=== PATIENT | female | born 1970 | race Hispanic/Latino ===

== ENCOUNTER 2021-12-01 04:20 | Emergency (ER) | payer BC ==
[~2021-12-01] VITALS: Ht 144.8 cm; Wt 82.1 kg
[2021-12-01] MEDS ORDERED: MORPHINE 4 MG SYG IM ONE (05:00)
[2021-12-01] MEDS ORDERED: CELE200C PO (05:10)
[2021-12-01 05:27] VITALS: BP 136/80
[2021-12-01] MEDS ORDERED: DEXAMETHASONE SOD PHOSPHATE 4 MG/ML 1ML VIAL IM ONE (05:30)
== END 2021-12-01 05:29 | disposition home or self-care (01) ==
LOC: EDH 04:20
DX: S83.242A Other tear of medial meniscus, current injury, left knee, initial encounter (principal); M25.562 Pain in left knee; G89.29 Other chronic pain; E11.9 Type 2 diabetes mellitus without complications; I10 Essential (primary) hypertension; X58.XXXA Exposure to other specified factors, initial encounter; Y93.89 Activity, other specified; Y92.89 Other specified places as the place of occurrence of the external cause; Y99.8 Other external cause status
CPT/HCPCS: 73562; 96372 ×2; 99284; J1100; J2270